=== PATIENT | female | born 1960 | race Caucasian/White ===

== ENCOUNTER 2017-01-25 10:31 | Day surgery (SDC) | payer OTHER ==
[~2017-01-25] VITALS: Ht 165.1 cm; Wt 70.9 kg
[2017-01-25] MEDS ORDERED: BACITRACIN OINT 500U/GM, 15 GM ONE (10:42)
[2017-01-25] MEDS ORDERED: THROMBIN 5,000 UNIT VIAL TP ONE (10:42)
[2017-01-25] MEDS ORDERED: LIDOCAINE/PF 1%, 30ML ONE (10:42)
[2017-01-25] MEDS ORDERED: COCAINE TOPICAL SOLN 4%, 4ML ONE (10:42)
[2017-01-25] MEDS ORDERED: OXYMETAZOLINE NASAL SPRAY 0.05%, 15ML ONE (10:43)
[2017-01-25] MEDS ORDERED: EPINEPHRINE 1 MG/ML, 1ML ONE (10:43)
[2017-01-25] MEDS ORDERED: LACTATED RINGERS 1,000 ML IV SCH (11:18)
[2017-01-25 11:30] VITALS: BP 109/71
[2017-01-25 11:52] VITALS: BP 109/71
[2017-01-25] MEDS ORDERED: PLEASE ENTER HEIGHT AND WEIGHT MC SCH (12:00)
[2017-01-25] MEDS ORDERED: SCOPOLAMINE PATCH, 1.5MG PATCH.TD72 TD ONE (12:10)
[2017-01-25] MEDS ORDERED: FENTANYL PF 100 MCG/2ML ONE ×3 (12:12→14:02)
[2017-01-25] MEDS ORDERED: MIDAZOLAM 1 MG/ML, 2ML ONE (12:12)
[2017-01-25] MEDS ORDERED: LIDOCAINE GEL 2%, 5ML ONE (12:14)
[2017-01-25] MEDS ORDERED: PROPOFOL 10 MG/ML, 20ML ONE (12:14)
[2017-01-25] MEDS ORDERED: ONDANSETRON 2MG/ML, 2ML ONE ×2 (12:14→14:08)
[2017-01-25] MEDS ORDERED: ROCURONIUM 10 MG/ML,10ML ONE (12:14)
[2017-01-25] MEDS ORDERED: SUCCINYLCHOLINE 20 MG/ML, 10ML ONE (12:14)
[2017-01-25] MEDS ORDERED: DEXAMETHASONE 4 MG/ML, 1ML ONE (12:14)
[2017-01-25] MEDS ORDERED: CEFAZOLIN 1,000 MG ONE (12:20)
[2017-01-25] MEDS ORDERED: PROMETHAZINE 25 MG/ML, 1ML IV PRN (13:00)
[2017-01-25] MEDS ORDERED: ALBUTEROL SULFATE 2.5 MG/3 ML NPPB PRN (13:00)
[2017-01-25] MEDS ORDERED: OXYcodone 5 MG/5 ML ORAL.SOL UDC PO PRN (13:00)
[2017-01-25] MEDS ORDERED: ACETAMINOPHEN 325 MG TABLET PO PRN (13:00)
[2017-01-25] MEDS ORDERED: ONDANSETRON 2MG/ML, 2ML IVPush PRN (13:00)
[2017-01-25] MEDS ORDERED: MEPERIDINE/PF 25MG/0.5ML IVPush PRN (13:00)
[2017-01-25] MEDS ORDERED: FENTANYL PF 100 MCG/2ML IV PRN (13:00)
[2017-01-25] MEDS ORDERED: MIDAZOLAM 1 MG/ML, 2ML IV PRN (13:00)
[2017-01-25] MEDS ORDERED: hydrALAzine 20 MG/ML, 1ML IV PRN (13:00)
[2017-01-25] MEDS ORDERED: LABETALOL 5MG/ML, 20ML IV PRN (13:00)
[2017-01-25] MEDS ORDERED: ACETAMINOPHEN 650 MG/20.3 ML UDC ONE (14:01)
[2017-01-25] MEDS ORDERED: ACETAMINOPHEN 325 MG TABLET ONE (14:02)
[2017-01-25] MEDS ORDERED: OXYcodone 5 MG/5 ML ORAL.SOL UDC ONE (14:02)
[2017-01-25] MEDS ORDERED: HYDROmorphone 1 MG/ML, 1ML ONE (14:08)
[2017-01-25] MEDS: HYDROmorphone 1 MG/ML, 1ML IV PRN ×2 (14:15→14:25)
[2017-01-25] MEDS ORDERED: PROMETHAZINE 25 MG/ML, 1ML ONE (14:41)
== END 2017-01-25 17:10 | disposition home or self-care (01) ==
LOC: OUT 10:31
PROVIDERS: ATTEND Otolaryngology
DX: J34.2 Deviated nasal septum (principal); J34.3 Hypertrophy of nasal turbinates; J34.89 Other specified disorders of nose and nasal sinuses; M95.0 Acquired deformity of nose; G47.33 Obstructive sleep apnea (adult) (pediatric); Z88.5 Allergy status to narcotic agent; K21.9 Gastro-esophageal reflux disease without esophagitis
CPT/HCPCS: 30140; 30465; 30520; J0171; J0330; J0690; J1100; J1170; J2250; J2405; J2550; J2704; J3010; J3490; J7120

== ENCOUNTER → 2019-02-13 | Outpatient (CLI) | payer OTHER | END | disposition home or self-care (01) | LOC: MERGE 08:39 → CFH 08:39 | PROVIDERS: ATTEND Internal Medicine Cardiovascular Disease | DX: E78.2 Mixed hyperlipidemia (principal) | CPT/HCPCS: 93978 ==